=== PATIENT | female | born 1985 | race Asian ===

== ENCOUNTER → 2022-04-14 | Outpatient (CLI) | payer OTHER | END | disposition home or self-care (01) | LOC: RADMN 11:19 | PROVIDERS: ATTEND Internal Medicine | DX: Z01.818 Encounter for other preprocedural examination (principal); M47.814 Spondylosis without myelopathy or radiculopathy, thoracic region; R76.11 Nonspecific reaction to tuberculin skin test without active tuberculosis | CPT/HCPCS: 71045 ==

== ENCOUNTER 2024-08-09 10:03 | Emergency (ER) | payer OTHER ==
[~2024-08-09] VITALS: Ht 165.1 cm; Wt 68.2 kg
[2024-08-09 10:08] VITALS: BP 121/73; PULSE 96; RESP 18; TEMP 99.9; O2SAT 99
[2024-08-09] MEDS: NEOMYCIN/POLYMYXIN B/HYDROCORT 10 ML OTIC SUSPENSION AS ONE (10:48)
[2024-08-09] MEDS ORDERED: AMOX500C2 PO (10:51)
== END 2024-08-09 11:09 | disposition home or self-care (01) ==
LOC: EMS 10:03
DX: H60.92 Unspecified otitis externa, left ear (principal); H66.92 Otitis media, unspecified, left ear
CPT/HCPCS: 99283

== ENCOUNTER 2025-04-27 14:56 | Emergency (ER) | payer OTHER ==
[~2025-04-27] VITALS: Ht 167.6 cm; Wt 81.8 kg
[~2025-04-27 14:56] MED LIST: AMOX500C2 PO
[2025-04-27 15:04] VITALS: BP 116/79; PULSE 94; RESP 18; TEMP 99.9; O2SAT 99
[2025-04-27] MEDS ORDERED: CEPH-558 PO (16:33)
[2025-04-27] MEDS ORDERED: CORTSUSP AD (16:33)
[2025-04-27] MEDS ORDERED: ACET-2080 PO (16:33)
== END 2025-04-27 16:54 | disposition home or self-care (01) ==
LOC: EMS 14:56
DX: H60.8X1 Other otitis externa, right ear (principal); Z79.899 Other long term (current) drug therapy
CPT/HCPCS: 99283; Z7502